=== PATIENT | female | born 1975 | race Caucasian/White ===

== ENCOUNTER 2017-11-12 09:08 | Day surgery (SDC) | payer BC ==
[2015-06-16 21:31] VITALS: BMI 26.8
[2017-11-12] MEDS ORDERED: Propofol 10 mg/ml Inj (20 ML) ONE (11:46)
[2017-11-12] MEDS ORDERED: Midazolam 2 MG/2 ML VIAL ONE (11:46)
[2017-11-12] MEDS ORDERED: HYDROmorphone 0.5 mg/0.5 ml ISec IVP PRN (12:32)
--- NOTE | 2017-11-12 12:42 | PCM.SURG1 ---
Surgeon's Initial Post Op Note - Surgeon's Notes Surgeon: Dr. Palma Finance Attorney: None Type of Anesthesia: General LMA Anesthesia Administered By: Dr. Molina Pre-Operative Diagnosis: 42 yo with Menorrhagia, Irregular mentrual cycle , endometrial polyp Operative Findings: AV uterus 8-10 wks Post-Operative Diagnosis: Same as above Operation Performed: Hysteroscopy Myosure D and C Specimen/Specimens Removed: Endometrial polyp, ECC, EMC Estimated Blood Loss: EBL {In ML}: 5 Blood Products Given: N/A Drains Used: No Drains Post-Op Condition: Good Date of Surgery/Procedure: 11/12/17 Time of Surgery/Procedure: 12:42
[2017-11-12 15:11] VITALS: BP 113/67; PULSE 77; RESP 18; TEMP 97.5; O2SAT 98
--- NOTE | 2017-11-13 01:07 | OP ---
PROCEDURE DATE: PREOPERATIVE DIAGNOSES: This is a 42-year-old female with history of menorrhagia, irregular menstrual period, as well as endometrial polyp. POSTOPERATIVE DIAGNOSES: This is a 42-year-old female with history of menorrhagia, irregular menstrual period, as well as endometrial polyp. PROCEDURE: Hysteroscopy, MyoSure, dilatation and curettage. SURGEON: Neelam Palma MD TYPE OF ANESTHESIA: General LMA. FINDINGS: Anteverted uterus, approximately 8 to 10 weeks gestation, noted to have multiple endometrial polyps. COMPLICATIONS: None. ESTIMATED BLOOD LOSS: 10 mL. IV FLUIDS: 500 mL. INPUT AND OUTPUT: 100 mL. SPECIMEN: EMC, ECC, and polyp. DESCRIPTION OF PROCEDURE: The patient was informed of the risks factors, benefits, and alternatives of the procedure. Risk factors included infection, bleeding, damage to the surrounding organs and tissues, complication from anesthesia and possible . After informed consent was obtained, she was then taken to the operating room, prepped and draped in a normal sterile fashion, placed in a dorsal lithotomy position. A weighted speculum was placed into the vagina. The anterior lip of the cervix was grasped with a single-toothed tenaculum. The uterus was gently sounded to approximately 8 cm. It was noted dilators were used to dilate the uterus. The scope was then introduced. A complete surveillance of the uterine cavity was performed, noted that bilateral ostia were identified. Endometrial polyp was noted to be anterior. The MyoSure device light was used to remove the endometrial polyps under direct visualization, excellent hemostasis was noted. Upon completion, the scope was then removed. A fractional D and C was then performed. EMC and ECC was submitted to Pathology. Excellent hemostasis was noted. Upon my completion, all instruments were removed from the vagina. Instrument and lap count were correct x2. The patient was then taken to Recovery in stable condition, and instructed to follow up in the office in approximately two weeks. Neelam Palma MD
== END 2017-11-12 14:58 | disposition home or self-care (01) ==
LOC: C.SDS 09:08
PROVIDERS: ATTEND Obstetrics & Gynecology
DX: N92.0 Excessive and frequent menstruation with regular cycle (principal); N84.0 Polyp of corpus uteri
CPT/HCPCS: 58558; 88305; J1100; J2250; J2704; J3010